=== PATIENT | female | born 1950 | race Caucasian/White ===

== ENCOUNTER 2020-09-13 07:11 | Inpatient (IN) ==
[~2020-09-13 07:11] MED LIST: Buffered Lidocaine 1% SYRIN 1 ml INTRADERM ONE; Famotidine IV 10 MG/ML 2 ml VIAL (20 mg) IV ONE; Lactated Ringers 1000 ml BAG 1,000 ML IV SCH
[2020-09-13] MEDS ORDERED: Famotidine IV 10 MG/ML 2 ml VIAL (20 mg) ONE (07:40)
[2020-09-13] MEDS ORDERED: Buffered Lidocaine 1% SYRIN 1 ml INTRADERM ONE (07:40)
[2020-09-13] MEDS ORDERED: ceFAZolin 2 GM PREMIX 2 GM/50 ML BAG ONE (07:40)
[2020-09-13] MEDS ORDERED: Dexamethasone IV 4 MG/ML VIAL 1 ml VIAL ONE (08:34)
[2020-09-13] MEDS ORDERED: Ondansetron 4 mg VIAL 2 MG/ML 2 ml VIAL ONE ×2 (08:34→13:15)
[2020-09-13] MEDS ORDERED: fentaNYL 100 mcg/2 ml 50 MCG/ML VIAL ONE ×5 (08:34→14:16)
[2020-09-13] MEDS ORDERED: Midazolam 5 mg/5 ml VIAL 1 mg/ml 5 ml VIAL (5 mg) ONE (08:34)
[2020-09-13] MEDS ORDERED: Rocuronium 50 mg VIAL 10 mg/ml 5 ml VIAL (50 mg) ONE (09:29)
[2020-09-13] MEDS ORDERED: Etomidate 20 mg/10 ml 2 MG/ML 10 ml VIAL ONE (09:30)
[2020-09-13] MEDS ORDERED: Ketamine HCL 50 mg/ml 10 ml VIAL (500 MG) ONE (09:30)
[2020-09-13] MEDS ORDERED: Bupivacaine 0.25% SDV 30 ML ONE (09:44)
[2020-09-13] MEDS ORDERED: EPHEDrine (Pressors) 50 MG/ML VIAL ONE (11:00)
[2020-09-13] MEDS ORDERED: Phenylephrine 40 mcg/mL 10mL (400mcg) SYRINGE ONE (12:15)
[2020-09-13] MEDS ORDERED: HYDROmorphone 1 MG/1 ML SYRINGE ONE ×2 (12:41→15:04)
[2020-09-13] MEDS ORDERED: Acetaminophen IV 1 GM/100ML 1,000 MG/100 ML VIAL IVPB ONE (13:04)
[2020-09-13] MEDS ORDERED: Naloxone 0.4 mg VIAL 0.4 mg/ml 1 ml VIAL IV PRN (13:04)
[2020-09-13] MEDS ORDERED: Ondansetron 4 mg VIAL 2 MG/ML 2 ml VIAL IV PRN ×2 (13:04→17:20)
[2020-09-13] MEDS ORDERED: Labetalol IV 5 MG/ML 20 ml VIAL ONE (13:15)
[2020-09-13] MEDS: Labetalol IV 5 MG/ML 20 ml VIAL IV PUSH PRN ×5 (13:19→15:33)
[2020-09-13] MEDS: fentaNYL 100 mcg/2 ml 50 MCG/ML VIAL IV PRN ×5 (13:22→14:17)
[2020-09-13] MEDS ORDERED: Acetaminophen IV 1 GM/100ML 100 ML ONE (13:46)
[2020-09-13] MEDS: HYDROmorphone 1 MG/1 ML SYRINGE IV PRN ×2 (15:06→15:33)
[2020-09-13] MEDS ORDERED: Metoprolol Tartrate 5 mg VIAL 5 ml VIAL (1 mg/ml) IV ONE (16:37)
[2020-09-13] MEDS ORDERED: Metoprolol Tartrate 5 mg VIAL 5 ml VIAL (1 mg/ml) ONE (16:40)
[2020-09-13] MEDS ORDERED: diPHENhydraMINE IV 50 MG/ML 1 ml VIAL (BENADRYL) IV PRN (17:20)
[2020-09-13] MEDS ORDERED: Ondansetron ODT 4 mg TAB 4 MG TAB PO PRN (17:20)
[2020-09-13] MEDS ORDERED: Magnesium Hydroxide LIQ 30 ML UDC PO PRN (17:20)
[2020-09-13] MEDS ORDERED: Morphine 2 MG/ML SYRINGE IV PRN (17:20)
[2020-09-13] MEDS ORDERED: diPHENhydraMINE 25 mg TAB PO PRN (17:20)
[2020-09-13] MEDS ORDERED: Lactulose 30 ml UDC PO PRN (17:20)
[2020-09-13] MEDS ORDERED: hydrALAZINE 20 mg/ml 1 ML Vial IV IV SLOW PU PRN (17:51)
[2020-09-13] MEDS: Magnesium Hydroxide LIQ 30 ML UDC PO SCH (20:59)
[2020-09-13] MEDS: Lactated Ringers 1000 ml BAG 1,000 ML IV SCH (21:00)
[2020-09-13] MEDS: Pindolol 10 mg TAB (NF) PO SCH (22:36)
[2020-09-13] MEDS: ceFAZolin 1 GM ADVAN 1 GM in NS 0.9% 50 ML 50 ML IVPB SCH (22:36)
[2020-09-13] MEDS: oxyCODONE/Acetamin 5/325 mg TAB PO PRN (22:59)
[2020-09-14] MEDS: oxyCODONE/Acetamin 5/325 mg TAB PO PRN ×5 (06:09→23:58)
[2020-09-14] MEDS: ceFAZolin 1 GM ADVAN 1 GM in NS 0.9% 50 ML 50 ML IVPB SCH ×2 (06:10→13:52)
[2020-09-14 06:23] LABS: Hematocrit 22 % (35-47); Hemoglobin 6.9 g/dL (12.0-16.0); Mean Platelet Volume 7.5 fL (7.4-10.4); Platelet Count 447 10^3/uL (150-450)
[2020-09-14 06:49] LABS: Anion Gap 6 mmol/L (2-11); BUN/Creatinine Ratio 26.7 (8-20); Blood Urea Nitrogen 20 mg/dL (6-24); CO2 Carbon Dioxide 25 mmol/L (22-32); Calcium 8.1 mg/dL (8.6-10.3); Chloride 99 mmol/L (101-111); EGFR African American 92.7 (>60); EGFR Non-African American 76.6 (>60); Glucose 107 mg/dL (70-100); Potassium 4.5 mmol/L (3.5-5.0); Sodium 130 mmol/L (135-145)
[2020-09-14] MEDS: Vitamin THERAPEUTIC TAB PO SCH (09:01)
[2020-09-14] MEDS: Pindolol 10 mg TAB (NF) PO SCH ×2 (09:01→19:46)
[2020-09-14 09:04] LABS: ABS Lymphocytes 2.1 10^3/ul (1.0-4.8); ABS Monocytes 1.2 10^3/ul (0-0.8); ABS Neutrophils 7.8 10^3/ul (1.5-7.7); Eosinophil % 0.1 %; Hematocrit 21 % (35-47); Hemoglobin 6.7 g/dL (12.0-16.0); Lymphocyte % 18.6 %; Mean Corpuscular HGB Conc 32 g/dL (31-36); Mean Corpuscular Hemoglobin 28 pg (27-31); Mean Corpuscular Volume 85 fL (80-97); Mean Platelet Volume 7.1 fL (7.4-10.4); Platelet Count 419 10^3/uL (150-450); Red Blood Count 2.43 10^6 /uL (3.70-4.87); Red Cell Distribution Width 15 % (10-15); White Blood Count 11.1 10^3/uL (3.5-10.8)
[2020-09-14] MEDS: Magnesium Hydroxide LIQ 30 ML UDC PO SCH ×2 (09:10→19:47)
[2020-09-14 13:08] LABS: % Iron Saturation 6 % (15-55); Iron 25 ug/dL (50-212); Total Iron Binding Capacity 448 mcg/dL (250-450); Transferrin 320 mg/dL (203-362); Unsaturated Iron Binding < 433 ug/dL
[2020-09-14 13:28] LABS: Ferritin 27.8 ng/mL (11-307)
[2020-09-14] MEDS: Lactated Ringers 1000 ml BAG 1,000 ML IV SCH (23:15)
[2020-09-15] MEDS: oxyCODONE/Acetamin 5/325 mg TAB PO PRN ×4 (04:29→21:47)
[2020-09-15 06:05] LABS: Hematocrit 22 % (35-47); Hemoglobin 7.4 g/dL (12.0-16.0); Mean Platelet Volume 7.4 fL (7.4-10.4); Platelet Count 412 10^3/uL (150-450)
[2020-09-15] MEDS: Vitamin THERAPEUTIC TAB PO SCH (09:58)
[2020-09-15] MEDS: Magnesium Hydroxide LIQ 30 ML UDC PO SCH ×2 (09:58→21:45)
[2020-09-15] MEDS: Pindolol 10 mg TAB (NF) PO SCH ×2 (09:59→21:46)
[2020-09-16] MEDS: oxyCODONE/Acetamin 5/325 mg TAB PO PRN ×3 (01:48→12:33)
[2020-09-16 06:14] LABS: Hematocrit 25 % (35-47); Hemoglobin 8.4 g/dL (12.0-16.0); Mean Platelet Volume 7.4 fL (7.4-10.4); Platelet Count 416 10^3/uL (150-450)
[2020-09-16] MEDS: Vitamin THERAPEUTIC TAB PO SCH (07:56)
[2020-09-16] MEDS: Magnesium Hydroxide LIQ 30 ML UDC PO SCH (07:57)
[2020-09-16] MEDS: Pindolol 10 mg TAB (NF) PO SCH (07:57)
[2020-09-16] MEDS ORDERED: Iron Sucrose 200 MG in NS 0.9% 100 ml BAG 100 ML IVPB ONE (10:00)
[2020-09-16 11:48] VITALS: BP 145/70
== END 2020-09-16 16:03 | disposition home health service (06) | DRG 951 ==
LOC: OR 07:11 → INTOOBSV 17:20 → SSU 17:20
PROVIDERS: ADMIT Orthopaedic Surgery Hand Surgery; ATTEND Orthopaedic Surgery Hand Surgery

== ENCOUNTER 2021-08-29 13:36 | Observation (INO) ==
[2021-08-29 15:22] LABS: ABS Basophils 0.1 10^3/ul (0-0.2); ABS Eosinophils 0.3 10^3/ul (0-0.6); ABS Lymphocytes 2.3 10^3/ul (1.0-4.8); ABS Monocytes 0.7 10^3/ul (0-0.8); ABS Neutrophils 4.7 10^3/ul (1.5-7.7); Eosinophil % 3.5 %; Hematocrit 23 % (35-47); Hemoglobin 7.3 g/dL (12.0-16.0); Lymphocyte % 28.3 %; Mean Corpuscular HGB Conc 31 g/dL (31-36); Mean Corpuscular Hemoglobin 24 pg (27-31); Mean Corpuscular Volume 75 fL (80-97); Mean Platelet Volume 7.4 fL (7.4-10.4); Platelet Count 464 10^3/uL (150-450); Red Blood Count 3.11 10^6 /uL (3.70-4.87); Red Cell Distribution Width 17 % (10-15)
[2021-08-29 15:30] LABS: Activated Partial Thrombo Time 40.3 seconds (26.0-38.0)
[2021-08-29 15:51] LABS: ALT 12 U/L (7-52); AST 17 U/L (13-39); Albumin 4.3 g/dL (3.2-5.2); Albumin/Globulin Ratio 1.3 (1-3); Alkaline Phosphatase 74 U/L (35-149); Anion Gap 8 mmol/L (2-11); Blood Urea Nitrogen 15 mg/dL (6-24); CO2 Carbon Dioxide 23 mmol/L (22-32); Calcium 9.5 mg/dL (8.6-10.3); Chloride 103 mmol/L (101-111); Globulin 3.2 g/dL (2-4); Glucose 107 mg/dL (70-100); Potassium 4.5 mmol/L (3.5-5.0); Sodium 134 mmol/L (135-145); Total Protein 7.5 g/dL (6.4-8.9)
[2021-08-29 21:11] LABS: ABS Basophils 0.1 10^3/ul (0-0.2); ABS Eosinophils 0.2 10^3/ul (0-0.6); ABS Lymphocytes 2.4 10^3/ul (1.0-4.8); ABS Monocytes 0.6 10^3/ul (0-0.8); Eosinophil % 3.2 %; Hematocrit 23 % (35-47); Hemoglobin 7.1 g/dL (12.0-16.0); Lymphocyte % 33.6 %; Mean Corpuscular HGB Conc 31 g/dL (31-36); Mean Corpuscular Hemoglobin 23 pg (27-31); Mean Corpuscular Volume 75 fL (80-97); Mean Platelet Volume 7.4 fL (7.4-10.4); Platelet Count 453 10^3/uL (150-450); Red Blood Count 3.06 10^6 /uL (3.70-4.87); Red Cell Distribution Width 16 % (10-15); White Blood Count 7.3 10^3/uL (3.5-10.8)
[2021-08-29 21:18] LABS: Urine Appearance Clear; Urine Bilirubin Negative (Negative); Urine Blood Negative (Negative); Urine Color Straw; Urine Glucose Negative (Negative); Urine Ketones Negative (Negative); Urine Nitrite Negative (Negative); Urine Protein Negative (Negative); Urine Specific Gravity 1.004 (1.002-1.030); Urine Urobilinogen Negative (Negative)
[2021-08-29] MEDS ORDERED: Pantoprazole VIAL 40 MG VIAL IV ONE (21:51)
[2021-08-29] MEDS: Pantoprazole 80 mg in NS BAG 80 MG/250 ML BAG IV ONE (23:00)
[2021-08-29 23:12] LABS: Rapid COVID-19 Molecular Undetected (Undetected)
[2021-08-30] MEDS: Pantoprazole 80 mg in NS BAG 80 MG/250 ML BAG IV ONE (04:44)
[2021-08-30 07:50] LABS: ABS Eosinophils 0.2 10^3/ul (0-0.6); ABS Lymphocytes 2.6 10^3/ul (1.0-4.8); ABS Monocytes 0.6 10^3/ul (0-0.8); ABS Neutrophils 4.4 10^3/ul (1.5-7.7); Eosinophil % 2.6 %; Hematocrit 29 % (35-47); Hemoglobin 9.4 g/dL (12.0-16.0); Lymphocyte % 32.7 %; Mean Corpuscular HGB Conc 32 g/dL (31-36); Mean Corpuscular Hemoglobin 25 pg (27-31); Mean Corpuscular Volume 78 fL (80-97); Mean Platelet Volume 7.3 fL (7.4-10.4); Platelet Count 404 10^3/uL (150-450); Red Blood Count 3.76 10^6 /uL (3.70-4.87); Red Cell Distribution Width 17 % (10-15); White Blood Count 7.8 10^3/uL (3.5-10.8)
[2021-08-30 08:08] LABS: Calcium 9.2 mg/dL (8.6-10.3)
[2021-08-30 08:53] LABS: Total Iron Binding Capacity 581 mcg/dL (250-450); Transferrin 415 mg/dL (203-362)
[2021-08-30 09:00] LABS: % Iron Saturation 3 % (15-55); Iron < 20 ug/dL (50-212); Unsaturated Iron Binding < 566 ug/dL
[2021-08-30 09:13] LABS: Ferritin 3.4 ng/mL (11-307)
[2021-08-30] MEDS: Pantoprazole VIAL 40 MG VIAL IV SCH ×2 (09:51→22:33)
[2021-08-30] MEDS: PINDOLOL 10 MG PO SCH ×2 (10:00→22:29)
[2021-08-30] MEDS ORDERED: Midazolam 10 mg/10 ml VIAL 1 mg/ml 10 ml VIAL (10 mg) ONE (14:57)
[2021-08-30] MEDS ORDERED: fentaNYL 100 mcg/2 ml 50 MCG/ML VIAL ONE (14:57)
[2021-08-31 07:04] LABS: ABS Basophils 0.1 10^3/ul (0-0.2); ABS Eosinophils 0.3 10^3/ul (0-0.6); ABS Lymphocytes 2.7 10^3/ul (1.0-4.8); ABS Monocytes 0.7 10^3/ul (0-0.8); ABS Neutrophils 3.5 10^3/ul (1.5-7.7); Eosinophil % 3.9 %; Hematocrit 28 % (35-47); Hemoglobin 9.4 g/dL (12.0-16.0); Mean Corpuscular HGB Conc 33 g/dL (31-36); Mean Corpuscular Hemoglobin 26 pg (27-31); Mean Corpuscular Volume 77 fL (80-97); Mean Platelet Volume 7.3 fL (7.4-10.4); Platelet Count 384 10^3/uL (150-450); Red Blood Count 3.65 10^6 /uL (3.70-4.87); Red Cell Distribution Width 17 % (10-15); White Blood Count 7.3 10^3/uL (3.5-10.8)
[2021-08-31 07:18] LABS: Calcium 9.4 mg/dL (8.6-10.3); Magnesium 2.2 mg/dL (1.9-2.7); Potassium 4.2 mmol/L (3.5-5.0)
[2021-08-31] MEDS: Pantoprazole VIAL 40 MG VIAL IV SCH (07:46)
[2021-08-31] MEDS: PINDOLOL 10 MG PO SCH (09:15)
[2021-08-31] MEDS ORDERED: Iron Sucrose 200 MG in NS 0.9% 100 ml BAG 100 ML IVPB ONE (10:00)
[2021-08-31 12:44] VITALS: BP 107/53
== END 2021-08-31 13:15 | disposition home or self-care (01) ==
LOC: ED 13:36 → SUATTDRO 08-30 00:02 → INTOOBSV 08-30 00:02 → MEDTELE 08-30 00:02
PROVIDERS: ADMIT Internal Medicine; ATTEND Student in an Organized Health Care Education/Training Program

== ENCOUNTER 2021-12-10 11:59 | Observation (INO) ==
[2021-12-10] MEDS ORDERED: Famotidine IV 10 MG/ML 2 ml VIAL (20 mg) ONE (12:15)
[2021-12-10] MEDS ORDERED: ceFAZolin 2 GM PREMIX 2 GM/50 ML BAG ONE (12:15)
[2021-12-10] MEDS ORDERED: fentaNYL 250 mcg/5 ml 50 MCG/ML 5 ml VIAL (250 MCG) ONE (12:41)
[2021-12-10] MEDS ORDERED: Midazolam 2 mg/2 ml VIAL 1 mg/ml 2 ml VIAL (2 mg) ONE (12:41)
[2021-12-10] MEDS ORDERED: Lidocaine 2% PF 5 ML VIAL ONE (12:41)
[2021-12-10] MEDS ORDERED: Rocuronium 50 mg VIAL 10 mg/ml 5 ml VIAL (50 mg) ONE ×2 (12:41→15:11)
[2021-12-10] MEDS ORDERED: Etomidate 20 mg/10 ml 2 MG/ML 10 ml VIAL ONE (12:41)
[2021-12-10] MEDS ORDERED: Bupivacaine 0.25% SDV 30 ML ONE (12:51)
[2021-12-10] MEDS ORDERED: Bupivacaine 0.5% SDV PF 30ML VIAL ONE (12:51)
[2021-12-10] MEDS ORDERED: Lidocaine 1% VIAL 10 MG/ML VIAL ONE (12:51)
[2021-12-10] MEDS ORDERED: Bupivacaine 0.5% 50 ML MDV VIAL ONE (13:22)
[2021-12-10] MEDS ORDERED: Ondansetron 4 mg VIAL 2 MG/ML 2 ml VIAL ONE (13:46)
[2021-12-10] MEDS ORDERED: Dexamethasone IV 4 MG/ML VIAL 1 ml VIAL ONE (13:46)
[2021-12-10] MEDS ORDERED: HYDROmorphone 0.5 MG/0.5 ML SYRINGE ONE (13:58)
[2021-12-10] MEDS ORDERED: Ondansetron 4 mg VIAL 2 MG/ML 2 ml VIAL IV PRN ×2 (15:37→15:56)
[2021-12-10] MEDS ORDERED: HYDROmorphone 1 MG/1 ML SYRINGE IV PRN (15:56)
[2021-12-10] MEDS ORDERED: Acetaminophen IV 1 GM/100 ML BAG IV ONE (15:56)
[2021-12-10] MEDS ORDERED: DiMENhydriNATE IV 50 mg/ml 1 ml VIAL IV PUSH PRN (15:56)
[2021-12-10] MEDS ORDERED: Naloxone 0.4 mg VIAL 0.4 mg/ml 1 ml VIAL IV PRN (15:56)
[2021-12-10] MEDS ORDERED: diPHENhydraMINE IV 50 MG/ML 1 ml VIAL (BENADRYL) IV PRN (15:56)
[2021-12-10] MEDS: hydrALAZINE 20 mg/ml 1 ML Vial IV IV SLOW PU ONE ×2 (16:05→16:33)
[2021-12-10] MEDS ORDERED: hydrALAZINE 20 mg/ml 1 ML Vial IV ONE (16:08)
[2021-12-10] MEDS: Lactated Ringers 1000 ml BAG 1,000 ML IV SCH (18:20)
[2021-12-10] MEDS: HYDROmorphone 0.5 MG/0.5 ML SYRINGE IV SLOW PU PRN (20:25)
[2021-12-11] MEDS: HYDROmorphone 0.5 MG/0.5 ML SYRINGE IV SLOW PU PRN (01:57)
[2021-12-11] MEDS: Lactated Ringers 1000 ml BAG 1,000 ML IV SCH ×2 (03:27→14:05)
[2021-12-11 06:19] LABS: Hematocrit 36 % (35-47); Hemoglobin 11.8 g/dL (12.0-16.0); Mean Corpuscular HGB Conc 33 g/dL (31-36); Mean Corpuscular Hemoglobin 29 pg (27-31); Mean Corpuscular Volume 88 fL (80-97); Mean Platelet Volume 8.4 fL (7.4-10.4); Platelet Count 247 10^3/uL (150-450); Red Blood Count 4.03 10^6 /uL (3.70-4.87); Red Cell Distribution Width 18 % (10-15); White Blood Count 7.5 10^3/uL (3.5-10.8)
[2021-12-11 06:38] LABS: Calcium 9.1 mg/dL (8.6-10.3); Potassium 4.1 mmol/L (3.5-5.0); eGFR CKD-EPI 73.2 (>60)
[2021-12-11 07:17] LABS: ABS Lymphocytes 1.3 10^3/ul (1.0-4.8); ABS Monocytes 0.7 10^3/ul (0-0.8); ABS Neutrophils 5.5 10^3/ul (1.5-7.7); Lymphocyte % 17.3 %
[2021-12-11] MEDS ORDERED: HYDROcodone/ACET. 7.5/325 LIQ 15 ML UDC PO PRN (14:13)
[2021-12-11 16:03] VITALS: BP 148/78
== END 2021-12-11 17:25 | disposition home or self-care (01) ==
LOC: SSU 11:59 → OR 11:59
PROVIDERS: ADMIT Surgery; ATTEND Surgery